=== PATIENT | female | born 1995 | race Two or more races ===

== ENCOUNTER → 2024-06-19 | Outpatient (CLI) | payer OTHER ==
[2024-06-19 13:42] LABS: HEMATOCRIT 36.5 % (36.0-47.0); MEAN CORPUSCULAR HEMOGLOBIN 34.2 pg (27.0-33.0); MEAN CORPUSCULAR HGB CONC 35.6 g/dl (32.0-36.5); MEAN CORPUSCULAR VOLUME 96.1 fl (80.0-96.0); PLATELET COUNT, AUTOMATED 180 10^3/uL (150-450); WHITE BLOOD COUNT 10.5 10^3/uL (4.0-10.0)
[2024-06-19 14:00] LABS: GLUCOSE CHALLENGE TEST 1 HOUR 84 MG/DL (LESS THAN 140)
[2024-06-19 14:35] LABS: HIV 1&2 SCREEN NEGATIVE (NEGATIVE)
[2024-06-19 14:43] LABS: HEPATITIS C VIRUS ABY INDEX < 0.02 INDEX (<0.8)
== END ==
LOC: M PLALAB 10:16
PROVIDERS: ATTEND Obstetrics & Gynecology
DX: O26.843 Uterine size-date discrepancy, third trimester (principal)

== ENCOUNTER → 2024-06-22 | Outpatient (CLI) | payer OTHER | LOC: M WHC 12:30 → EDUNIT# 13:00 | PROVIDERS: ATTEND Obstetrics & Gynecology | DX: O26.843 Uterine size-date discrepancy, third trimester (principal); Z3A.32 32 weeks gestation of pregnancy ==

== ENCOUNTER → 2024-07-12 | Outpatient (CLI) | payer OTHER | LOC: M RAD 16:22 | PROVIDERS: ATTEND Obstetrics & Gynecology | DX: O36.5930 Maternal care for other known or suspected poor fetal growth, third trimester, not applicable or unspecified (principal); Z3A.37 37 weeks gestation of pregnancy ==

== ENCOUNTER 2024-07-20 07:27 | Inpatient (IN) | payer OTHER ==
[~2024-07-20] VITALS: Ht 154.9 cm; Wt 73.2 kg
[2024-07-20] VITALS (33 sets, daily range): BP systolic 99–126; BP diastolic 49–72; O2SAT 93–100
[~2024-07-20 07:27] MED LIST: UNRESOLVED CLARIFICATION ENTRY XX SCH
[2024-07-20] MEDS ORDERED: OXYTOCIN DRIP 30 UNITS in IV 1 EA IV PRN ×3 (07:45)
[2024-07-20] MEDS ORDERED: CARBOPROST TROMETHAMINE 250 MCG/ML AMP IM PRN (07:45)
[2024-07-20] MEDS ORDERED: miSOPROStol 50MCG 1/2 TABLET PO PRN (07:45)
[2024-07-20] MEDS ORDERED: OXYTOCIN INJ 10UNITS/ML 1ML VIAL IM PRN (07:45)
[2024-07-20] MEDS ORDERED: LIDOCAINE 1% MDV 20ML VIAL INFIL PRN (07:45)
[2024-07-20] MEDS ORDERED: LR 1,000 ML IV SCH (07:45)
[2024-07-20] MEDS ORDERED: TRANEXAMIC ACID INJection 1,000 MG in NS 100 ML IV PRN (07:45)
[2024-07-20] MEDS ORDERED: OXYTOCIN INJ 10UNITS/ML 1ML VIAL IV PRN (07:45)
[2024-07-20] MEDS ORDERED: METHYLERGONOVINE MALEATE 0.2MG/ML 1ML VIAL IM PRN (07:45)
[2024-07-20] MEDS: LACTATED RINGER'S 1000 ML IV STA (07:45)
[2024-07-20] MEDS ORDERED: ACET325C5 PO (07:55)
[2024-07-20] MEDS ORDERED: TUMS500C PO (07:56)
[2024-07-20] MEDS: LR 1,000 ML IV SCH (08:47)
[2024-07-20 08:48] LABS: HEMATOCRIT 37.9 % (36.0-47.0); HEMOGLOBIN 13.5 g/dl (12.0-15.5); MEAN CORPUSCULAR HEMOGLOBIN 34.3 pg (27.0-33.0); MEAN CORPUSCULAR HGB CONC 35.6 g/dl (32.0-36.5); MEAN CORPUSCULAR VOLUME 96.2 fl (80.0-96.0); PLATELET COUNT, AUTOMATED 167 10^3/uL (150-450); RED BLOOD COUNT 3.94 10^6/uL (4.00-5.40); WHITE BLOOD COUNT 8.6 10^3/uL (4.0-10.0)
[2024-07-20] MEDS: OXYTOCIN DRIP 30 UNITS in IV 1 EA IV SCH (08:54)
[2024-07-20] MEDS: PENICILLIN G POTASSIUM 5 MU IV 5 MU in D5W MINI-BAG PLUS 100 ML IV STA (10:47)
[2024-07-20 12:18] LABS: GC DNA AMPLIFICATION NEGATIVE (NEGATIVE)
[2024-07-20 14:26] LABS: HEPATITIS B SURFACE ANTIGEN NEGATIVE (NEGATIVE)
[2024-07-20] MEDS: PEN G POT 3,000,000 UNIT/50 ML 3,000,000 UNIT in IV 1 EA IV SCH (14:55)
[2024-07-20] MEDS ORDERED: FENTANYL 2MCG/ML ROPIVACAINE 0.2% IN 0.9% NACL 100ML IVBAG As Ordered ONE (17:17)
[2024-07-20] MEDS ORDERED: EPIDURAL/PCA KEYS XX PRN ×2 (17:35)
[2024-07-20] MEDS ORDERED: ePHEDrine SULFATE 25 MG/5 ML(5MG/ML) SYRINGE IVP PRN ×2 (17:35)
[2024-07-20] MEDS ORDERED: ONDANSETRON 4MG 2ML VIAL IV PRN ×2 (17:35)
[2024-07-20] MEDS ORDERED: LR 500 ML IV PRN (17:35)
[2024-07-20] MEDS ORDERED: NALOXONE INJ 0.4MG/1ML VIAL IV PRN ×2 (17:35)
[2024-07-20] MEDS ORDERED: diphenhydrAMINE 50MG/ML VIAL IV PRN ×2 (17:35)
[2024-07-20] MEDS: FENTANYL/ROPIVACAINE/NACL BAG 100 ML EPIDURAL SCH (18:28)
[2024-07-20] MEDS: CALCIUM CARBONATE 500 MG CHEW U/D PO PRN (19:01)
[2024-07-20] MEDS ORDERED: METHYLERGONOVINE MALEATE 0.2 MG TAB PO PRN (21:15)
[2024-07-20] MEDS ORDERED: DOCUSATE SODIUM 100MG CAPSULE PO PRN (21:15)
[2024-07-20] MEDS ORDERED: RHO(D) IMMUNE GLOBULIN/MALTOSE 500MCG(2500IU)/2.2ML VIAL (WINRHO) IM SCH (21:15)
[2024-07-20] MEDS ORDERED: DIBUCAINE 1% OINTMENT 30GM TOP PRN (21:15)
[2024-07-20] MEDS: IBUPROFEN 600MG TAB PO PRN (23:26)
[2024-07-21 05:43] VITALS: BP 104/57; O2SAT 98
[2024-07-21] MEDS: PRENATAL VITAMINS CHEWABLE TABLET PO SCH (09:00)
[2024-07-21] MEDS: ACETAMINOPHEN 500 MG TAB PO PRN (09:06)
[2024-07-21 18:04] VITALS: BP 111/59; O2SAT 100
[2024-07-21 18:27] LABS: HEPATITIS C VIRUS ABY INDEX < 0.02 INDEX (<0.8)
[2024-07-22 06:00] VITALS: BP 109/55; O2SAT 99
[2024-07-22] MEDS: MEASLES,MUMPS,RUBELLA VACCINE INJ (MMR-II) SC.IMMUN ONE (09:00)
[2024-07-22] MEDS ORDERED: ACET-683 PO (09:07)
[2024-07-22] MEDS ORDERED: IBUP-1022 PO (09:07)
== END 2024-07-22 12:25 | disposition home or self-care (01) | DRG 807 ==
LOC: M LDI 07:27 → M OBS 23:04
PROVIDERS: ADMIT Obstetrics & Gynecology; ATTEND Obstetrics & Gynecology
PROC: 10E0XZZ Delivery of Products of Conception, External Approach (ICD-10-PCS; principal; 2024-07-20)
PROC: 3E033VJ Introduction of Other Hormone into Peripheral Vein, Percutaneous Approach (ICD-10-PCS; 2024-07-20)
PROC: 10907ZC Drainage of Amniotic Fluid, Therapeutic from Products of Conception, Via Natural or Artificial Opening (ICD-10-PCS; 2024-07-20)
DX: O36.5930 Maternal care for other known or suspected poor fetal growth, third trimester, not applicable or unspecified (principal); Z37.0 Single live birth; Z3A.38 38 weeks gestation of pregnancy; O99.824 Streptococcus B carrier state complicating childbirth; O69.1XX0 Labor and delivery complicated by cord around neck, with compression, not applicable or unspecified

== ENCOUNTER 2025-04-02 08:53 | Day surgery (SDC) | payer OTHER ==
[~2025-04-02] VITALS: Ht 152.4 cm; Wt 68.7 kg
[~2025-04-02 08:53] MED LIST changes: +ACET-683 PO; +ACET325C5 PO; +IBUP-1022 PO; +RIZA10TA58 PO; +TUMS500C PO; -UNRESOLVED CLARIFICATION ENTRY XX SCH
[2025-04-02 09:43] LABS: BASO % 0.5 % (0.0-1.0); EOS # 0.1 10^3/uL (0.0-0.5); EOS % 1.4 % (0.0-3.0); HEMATOCRIT 41.1 % (36.0-47.0); HEMOGLOBIN 14.5 g/dl (12.0-15.5); LYMPH # 1.8 10^3/uL (1.5-5.0); LYMPH % 28.6 % (24.0-44.0); MEAN CORPUSCULAR HEMOGLOBIN 33.6 pg (27.0-33.0); MEAN CORPUSCULAR HGB CONC 35.3 g/dl (32.0-36.5); MEAN CORPUSCULAR VOLUME 95.4 fl (80.0-96.0); MONO # 0.4 10^3/uL (0.0-0.8); MONO % 7.1 % (2.0-8.0); NEUTROPHILS # 3.9 10^3/uL (1.5-8.5); NEUTROPHILS % 62.1 % (36.0-66.0); PLATELET COUNT, AUTOMATED 193 10^3/uL (150-450); RED BLOOD COUNT 4.31 10^6/uL (4.00-5.40); WHITE BLOOD COUNT 6.2 10^3/uL (4.0-10.0)
[2025-04-02] MEDS: ENOXAPARIN 40MG/0.4ML SYRINGE (J1650 PER 10MG) SC ONE (09:46)
[2025-04-02] MEDS: metroNIDAZOLE 500 MG in IV 1 EA IV ONE (09:49)
[2025-04-02] MEDS: ceFAZolin SOD 2 GM IV ONCE IV ONE (10:17)
[2025-04-02] MEDS ORDERED: ROCURONIUM BROMIDE 50MG/5ML VIAL As Ordered ONE (10:22)
[2025-04-02] MEDS ORDERED: ONDANSETRON 4MG 2ML VIAL As Ordered ONE (10:22)
[2025-04-02] MEDS ORDERED: MIDAZOLAM INJ 2MG/2ML VIAL As Ordered ONE (10:22)
[2025-04-02] MEDS ORDERED: fentaNYL 100 MCG/2 ML INJECTION As Ordered ONE (10:22)
[2025-04-02] MEDS ORDERED: propofoL 200 MG/20 ML VIAL As Ordered ONE (10:22)
[2025-04-02] MEDS ORDERED: LIDOCAINE 2% 100MG/5ML SDV (FOR ANES.) As Ordered ONE (10:22)
[2025-04-02] MEDS ORDERED: dexmedeTOMIDine (4MCG/ML)200MCG/50ML BTL (PRECEDEX) As Ordered ONE (10:22)
[2025-04-02] MEDS ORDERED: ACETAMINOPHEN 1000MG/100ML IV BAG As Ordered ONE (10:23)
[2025-04-02] MEDS ORDERED: HYDROmorphone HCL 2MG/ML 1ML VIAL As Ordered ONE (10:37)
[2025-04-02] MEDS ORDERED: fentaNYL 100 MCG/2 ML INJECTION IV PRN (12:40)
[2025-04-02] MEDS ORDERED: HYDROMORPHONE HCL 0.5 MG/ 0.5 ML SYRINGE IV PRN (12:40)
[2025-04-02] MEDS ORDERED: MEPERIDINE 25 MG/ML 1ML VIAL IV PRN (12:40)
[2025-04-02] MEDS: oxyCODONE 5MG TAB PO PRN (13:02)
[2025-04-02] MEDS: ONDANSETRON 4MG 2ML VIAL IV PRN (13:02)
[2025-04-02 13:30] VITALS: BP 122/71; TEMP 97.6; O2SAT 100
== END 2025-04-02 14:04 | disposition home or self-care (01) ==
LOC: M SDC 08:53
PROVIDERS: ATTEND Obstetrics & Gynecology
DX: N85.8 Other specified noninflammatory disorders of uterus (principal); N80.03 Adenomyosis of the uterus; N93.9 Abnormal uterine and vaginal bleeding, unspecified; N94.6 Dysmenorrhea, unspecified; N80.00 Endometriosis of the uterus, unspecified; Z79.899 Other long term (current) drug therapy; F17.290 Nicotine dependence, other tobacco product, uncomplicated
CPT/HCPCS: 36415; 58571; 81025; 85025; 86850; 86900; 86901; 88307; A6024; J0131; J0665; J0690; J1100; J1171; J1650; J1836; J2250; J2405; J3010